=== PATIENT | female | born 1970 | race African-American/Black ===

== ENCOUNTER 2017-12-01 22:48 | Inpatient (IN) ==
[2017-12-01] MEDS ORDERED: ONDANSETRON 4 MG/2 ML VIAL IV STA (23:03)
[2017-12-01] MEDS ORDERED: MORPHINE 4 MG/1 ML VIAL IV STA (23:03)
[2017-12-02] MEDS ORDERED: LEVOFLOXACIN INJ 100 ML IV ONE (00:11)
[2017-12-02 00:26] LABS: INR 1.1; PT Patient Result 11.3 SECS; Partial Thromboplastin Time 25.4 SECS (0-40)
[2017-12-02] MEDS ORDERED: GENTAMICIN INJ 160 MG in SODIUM CHLORIDE 0.9% 100 ML IV ONE (00:30)
[2017-12-02] MEDS ORDERED: LEVOFLOXACIN INJ 500 MG in PREMIX 1 EACH IV ONE (00:30)
[2017-12-02 00:47] LABS: Albumin 2.5 G/DL (3.4-5.0); Bilirubin,Total 0.5 MG/DL (0.2-1.0); Calcium 7.9 MG/DL (8.5-10.1); Osmolality,Calculated 289.8 MOS/KG (273-304); Potassium 3.2 MMOL/L (3.5-5.1); Total Protein 6.4 G/DL (6.4-8.3)
[2017-12-02 00:54] LABS: Basophils % 0.2 % (0.0-0.8); Hemoglobin 12.2 GM/DL (12.0-16.0); Immature Granulocytes % 0.5 %; Immature Granulocytes Absolute 0.06 #; Lymphocytes # 0.3 10*3/uL (1.4-4.0); Lymphocytes % 2.3 % (21.3-54.2); Mean Corpuscular HGB Conc 33.9 GM/DL (32-36); Mean Corpuscular Hemoglobin 27 PG (27-34); Mean Corpuscular Volume 80.5 FL (87-102); Mean Platelet Volume 12.5 FL (9.6-12.0); Monocytes # 0.1 10*3/uL (0.11-0.8); Monocytes % 0.9 % (1.7-12.7); Neutrophils # 11.2 10*3/uL (1.4-7.4); Neutrophils % 96.1 % (38.7-73.9); Platelet Count 155 T/CUMM (130-400); Red Blood Count 4.47 MC/CUMM (3.8-5.5); Red Cell Distribution Width 14.7 % (9.3-17.3); White Blood Count 11.7 T/CUMM (4-12)
[2017-12-02] MEDS ORDERED: ONDANSETRON 4 MG/2 ML VIAL IV PRN (01:00)
[2017-12-02] MEDS ORDERED: PROMETHAZINE 25 MG/1 ML VIAL IM PRN (01:00)
[2017-12-02] MEDS ORDERED: DEXTROSE 50% 25 GM/50 ML VIAL IV PRN ×2 (01:07→13:45)
[2017-12-02] MEDS ORDERED: GLUCAGON 1 MG VIAL IM PRN ×2 (01:07→13:45)
[2017-12-02] MEDS ORDERED: DOCUSATE SODIUM 100 MG CAPSULE PO PRN (01:08)
[2017-12-02] MEDS ORDERED: diphenhydrAMINE 50 MG/1 ML VIAL IV PRN (01:08)
[2017-12-02] MEDS ORDERED: POTASSIUM CHLORIDE 20 MEQ TABLET PO ONE (01:10)
[2017-12-02 01:20] LABS: Band Neutrophils 13 % (0-10); Lymphocytes 10 % (20-55); Platelet Estimate Normal; Segmented Neutrophils 75 % (50-85); Total Cells Counted 100
[2017-12-02] MEDS ORDERED: SEVOFLURANE 1 UNIT/15 MINUTE INH ONE (01:46)
[2017-12-02] MEDS ORDERED: SUCCINYLCHOLINE 200 MG/10 ML VIAL ONE (01:46)
[2017-12-02] MEDS ORDERED: fentaNYL 100 MCG/2 ML VIAL ONE (01:46)
[2017-12-02] MEDS ORDERED: ROCURONIUM 100 MG/10 ML VIAL IV ONE (01:46)
[2017-12-02] MEDS ORDERED: METOCLOPRAMIDE 10 MG/2 ML VIAL ONE (01:46)
[2017-12-02] MEDS ORDERED: GLYCOPYRROLATE 0.4 MG/2 ML VIAL ONE (01:46)
[2017-12-02] MEDS ORDERED: PHENYLEPHRINE 1 MG/10 ML SYRINGE IV ONE (01:46)
[2017-12-02] MEDS ORDERED: NEOSTIGMINE 10 MG/10 ML VIAL ONE (01:46)
[2017-12-02] MEDS ORDERED: MIDAZOLAM 2 MG/2 ML VIAL ONE (01:46)
[2017-12-02 01:58] LABS: ABG Base Excess -6.2 MMOL/L (-2.5-2.5); ABG HCO3 19.4 MMOL/L (20-26); ABG Oxygen Saturation 97.7 % (95-100); ABG PCO2 46.9 MM HG (35-48); ABG PH 7.261 (7.35-7.45)
[2017-12-02 02:00] LABS: Apearance,Urine CLOUDY (Clear); Bacteria,Urine Moderate /HPF (Few); Bilirubin,Urine Negative (Negative); Blood, Urine Large mg/dL (Negative); Glucose,Urine (UA) Negative (Negative); Ketones,Urine Negative (Negative); Mucus,Urine Occasional /LPF (Occasional); Nitrite,Urine Negative (Negative); Protein,Urine 30 MG/DL; RBC,Urine 112 /HPF (0-4); Urine Color Yellow (Yellow); Urine Specific Gravity 1.006 (1.001-1.035); Urine Urobilinogen < 2.0 EU/DL (0.2-1.0); WBC,Urine 841 /HPF (0-6)
[2017-12-02 02:28] LABS: Calcium 7.9 MG/DL (8.5-10.1); Osmolality,Calculated 292.8 MOS/KG (273-304); Potassium 3.3 MMOL/L (3.5-5.1)
[2017-12-02] MEDS: SODIUM CHLORIDE 0.9% 1,000 ML IV SCH ×3 (02:38→18:30)
[2017-12-02] MEDS: PROPOFOL 1,000 MG/100 ML BOTTLE IV SCH ×2 (02:39→05:38)
[2017-12-02] MEDS ORDERED: ALBUTEROL/IPRATROPIUM 3 ML NEB RESP TX PRN (03:00)
[2017-12-02] MEDS ORDERED: PHENYLEPHRINE DRIP 40 MG/250 ML PREMIX IV PRN (03:11)
[2017-12-02 04:12] LABS: Allen Test Positive; Pt O2 Delivery Device Ventilator
[2017-12-02 04:13] LABS: ABG HCO3 20.3 MMOL/L (20-26); ABG Oxygen Saturation 96.1 % (95-100); ABG PCO2 40.7 MM HG (35-48); ABG PH 7.318 (7.35-7.45); ABG PO2 80.1 MM HG (80-95); ABG TCO2 18.8 MMOL/L (23-27)
[2017-12-02] MEDS ORDERED: INSULIN REGULAR 100 UNIT/ML SUBCUT SCH ×2 (07:30→12:00)
[2017-12-02] MEDS: ALBUTEROL/IPRATROPIUM 3 ML NEB RESP TX SCH ×3 (07:41→19:39)
[2017-12-02] MEDS: TAMSULOSIN 0.4 MG CAPSULE PO SCH (09:00)
[2017-12-02] MEDS ORDERED: FAMOTIDINE 20 MG TABLET PO SCH (09:00)
[2017-12-02] MEDS ORDERED: FAMOTIDINE 8 MG/ML 50 ML/BOTTLE NG SCH (09:00)
[2017-12-02] MEDS: cefTRIAXone 1,000 MG in SYRINGE 1 EACH IV SCH (09:10)
[2017-12-02 09:27] LABS: Calcium 7.7 MG/DL (8.5-10.1); Osmolality,Calculated 283.5 MOS/KG (273-304); Potassium 5.5 MMOL/L (3.5-5.1)
[2017-12-02] MEDS: MORPHINE 10 MG/1 ML VIAL IV PRN ×2 (16:15→23:08)
[2017-12-02] MEDS: INSULIN REGULAR 100 UNIT/ML SUBCUT SCH ×2 (16:30→22:20)
[2017-12-03] MEDS: ALBUTEROL/IPRATROPIUM 3 ML NEB RESP TX SCH ×3 (00:37→19:03)
[2017-12-03] MEDS: SODIUM CHLORIDE 0.9% 1,000 ML IV SCH ×2 (03:18→15:45)
[2017-12-03 05:25] LABS: Basophils % 0.2 % (0.0-0.8); Eosinophils # 0.2 10*3/uL (0.0-0.87); Eosinophils % 0.8 % (0.00-10.9); Hematocrit 34.6 VOL% (35.7-47.0); Hemoglobin 11.8 GM/DL (12.0-16.0); Immature Granulocytes Absolute 0.17 #; Lymphocytes # 1.7 10*3/uL (1.4-4.0); Lymphocytes % 9.7 % (21.3-54.2); Mean Corpuscular HGB Conc 34.1 GM/DL (32-36); Mean Corpuscular Hemoglobin 27 PG (27-34); Mean Corpuscular Volume 79.5 FL (87-102); Mean Platelet Volume 12.6 FL (9.6-12.0); Monocytes % 5.8 % (1.7-12.7); Neutrophils # 14.7 10*3/uL (1.4-7.4); Neutrophils % 82.5 % (38.7-73.9); Platelet Count 144 T/CUMM (130-400); Red Blood Count 4.35 MC/CUMM (3.8-5.5); Red Cell Distribution Width 15.2 % (9.3-17.3); White Blood Count 17.8 T/CUMM (4-12)
[2017-12-03 05:53] LABS: Calcium 8.3 MG/DL (8.5-10.1); Osmolality,Calculated 291.7 MOS/KG (273-304); Potassium 4.1 MMOL/L (3.5-5.1)
[2017-12-03 06:02] LABS: Hypochromasia 1+; Microcytosis 1+; Platelet Estimate Adequate; Tear Drop Cells Slight
[2017-12-03] MEDS: ACETAMINOPHEN 325 MG TABLET PO PRN ×2 (06:28→22:36)
[2017-12-03] MEDS: INSULIN REGULAR 100 UNIT/ML SUBCUT SCH ×4 (07:48→22:41)
[2017-12-03] MEDS: FAMOTIDINE 20 MG TABLET PO SCH (08:50)
[2017-12-03] MEDS: VALSARTAN 160 MG TABLET PO SCH (08:50)
[2017-12-03] MEDS: cefTRIAXone 1,000 MG in SYRINGE 1 EACH IV SCH (08:50)
[2017-12-03] MEDS: TAMSULOSIN 0.4 MG CAPSULE PO SCH (08:50)
[2017-12-03] MEDS ORDERED: NIFEdipine 10 MG CAPSULE PO PRN (13:05)
[2017-12-03] MEDS: amLODIPine 10 MG TABLET PO SCH (13:20)
[2017-12-03] MEDS: MORPHINE 10 MG/1 ML VIAL IV PRN (15:00)
[2017-12-04] MEDS: ALBUTEROL/IPRATROPIUM 3 ML NEB RESP TX SCH ×4 (01:05→19:25)
[2017-12-04] MEDS: INSULIN REGULAR 100 UNIT/ML SUBCUT SCH ×4 (07:55→21:19)
[2017-12-04] MEDS: TAMSULOSIN 0.4 MG CAPSULE PO SCH (09:07)
[2017-12-04] MEDS: amLODIPine 10 MG TABLET PO SCH (09:07)
[2017-12-04] MEDS: VALSARTAN 160 MG TABLET PO SCH (09:07)
[2017-12-04] MEDS: cefTRIAXone 1,000 MG in SYRINGE 1 EACH IV SCH (09:07)
[2017-12-04] MEDS: FAMOTIDINE 20 MG TABLET PO SCH (09:07)
[2017-12-04] MEDS: SODIUM CHLORIDE 0.9% 1,000 ML IV SCH (09:09)
[2017-12-04] MEDS: MORPHINE 10 MG/1 ML VIAL IV PRN (14:21)
[2017-12-04] MEDS: ACETAMINOPHEN 325 MG TABLET PO PRN (23:26)
[2017-12-05] MEDS: ALBUTEROL/IPRATROPIUM 3 ML NEB RESP TX SCH ×3 (00:40→07:34)
[2017-12-05] MEDS: SODIUM CHLORIDE 0.9% 1,000 ML IV SCH (06:18)
[2017-12-05 06:51] LABS: Basophils # 0.1 10*3/uL (0.0-0.2); Basophils % 0.6 % (0.0-0.8); Eosinophils # 0.3 10*3/uL (0.0-0.87); Eosinophils % 3.4 % (0.00-10.9); Hematocrit 36.1 VOL% (35.7-47.0); Hemoglobin 12.5 GM/DL (12.0-16.0); Immature Granulocytes % 0.9 %; Immature Granulocytes Absolute 0.09 #; Lymphocytes # 2.6 10*3/uL (1.4-4.0); Lymphocytes % 27.3 % (21.3-54.2); Mean Corpuscular HGB Conc 34.6 GM/DL (32-36); Mean Corpuscular Hemoglobin 27 PG (27-34); Mean Corpuscular Volume 77.3 FL (87-102); Mean Platelet Volume 12.5 FL (9.6-12.0); Monocytes # 0.9 10*3/uL (0.11-0.8); Monocytes % 9.9 % (1.7-12.7); Neutrophils # 5.5 10*3/uL (1.4-7.4); Neutrophils % 57.9 % (38.7-73.9); Platelet Count 174 T/CUMM (130-400); Red Blood Count 4.67 MC/CUMM (3.8-5.5); Red Cell Distribution Width 14.6 % (9.3-17.3); White Blood Count 9.5 T/CUMM (4-12)
[2017-12-05 07:10] LABS: Osmolality,Calculated 281.1 MOS/KG (273-304); Potassium 3.5 MMOL/L (3.5-5.1)
[2017-12-05] MEDS: INSULIN REGULAR 100 UNIT/ML SUBCUT SCH ×3 (08:05→16:57)
[2017-12-05] MEDS ORDERED: POTASSIUM CHLORIDE 20 MEQ TABLET PO ONE (08:12)
[2017-12-05] MEDS: cefTRIAXone 1,000 MG in SYRINGE 1 EACH IV SCH (09:02)
[2017-12-05] MEDS: amLODIPine 10 MG TABLET PO SCH (09:03)
[2017-12-05] MEDS: FAMOTIDINE 20 MG TABLET PO SCH (09:03)
[2017-12-05] MEDS: TAMSULOSIN 0.4 MG CAPSULE PO SCH (09:03)
[2017-12-05] MEDS: VALSARTAN 160 MG TABLET PO SCH (09:03)
[2017-12-05] MEDS ORDERED: MAGNESIUM OXIDE 400 MG TABLET PO ONE (09:04)
[2017-12-05] MEDS ORDERED: cephALEXin 500 MG CAPSULE PO SCH (11:30)
[2017-12-05] MEDS ORDERED: NITROFURANTOIN MACRO/MONO 100 MG CAPSULE PO SCH (11:30)
[2017-12-05 18:20] VITALS: BP 153/93
== END 2017-12-05 18:19 | disposition home or self-care (01) | DRG 689 ==
LOC: EDUNIT# → EDBD → N.ED 22:48 → N.ICU 12-02 00:26 → N.5E 12-03 20:24
PROVIDERS: ADMIT Surgery; ATTEND Surgery

== ENCOUNTER 2017-12-18 06:16 | Observation (INO) ==
[~2017-12-18 06:16] MED LIST: LACTATED RINGERS 1,000 ML IV SCH
[2017-12-18] MEDS ORDERED: cefTRIAXone 1,000 MG in SYRINGE 1 EACH IV ONE (06:30)
[2017-12-18] MEDS ORDERED: ONDANSETRON 4 MG/2 ML VIAL IV PRN (07:51)
[2017-12-18] MEDS ORDERED: DEXTROSE 50% 25 GM/50 ML VIAL IV PRN (07:51)
[2017-12-18] MEDS ORDERED: GLUCAGON 1 MG VIAL IM PRN (07:51)
[2017-12-18] MEDS ORDERED: MORPHINE 10 MG/1 ML VIAL IV PRN (07:51)
[2017-12-18] MEDS ORDERED: PROMETHAZINE 25 MG/1 ML VIAL IM PRN (07:51)
[2017-12-18] MEDS ORDERED: diphenhydrAMINE 50 MG/1 ML VIAL IV PRN (07:54)
[2017-12-18] MEDS ORDERED: GENTAMICIN INJ 160 MG in SODIUM CHLORIDE 0.9% 100 ML IV ONE (07:55)
[2017-12-18] MEDS ORDERED: PROPOFOL 200 MG/20 ML VIAL IV ONE (08:18)
[2017-12-18] MEDS ORDERED: MIDAZOLAM 2 MG/2 ML VIAL ONE (08:19)
[2017-12-18] MEDS ORDERED: SEVOFLURANE 1 UNIT/15 MINUTE INH ONE (08:19)
[2017-12-18] MEDS ORDERED: GLYCOPYRROLATE 0.4 MG/2 ML VIAL ONE (08:20)
[2017-12-18] MEDS ORDERED: fentaNYL 100 MCG/2 ML VIAL ONE (08:20)
[2017-12-18] MEDS ORDERED: NEOSTIGMINE 10 MG/10 ML VIAL ONE (08:21)
[2017-12-18] MEDS ORDERED: SUCCINYLCHOLINE 200 MG/10 ML VIAL ONE (08:21)
[2017-12-18] MEDS ORDERED: ROCURONIUM 100 MG/10 ML VIAL IV ONE (08:21)
[2017-12-18] MEDS ORDERED: TAMSULOSIN 0.4 MG CAPSULE PO SCH (09:00)
[2017-12-18 09:25] LABS: Basophils # 0.1 10*3/uL (0.0-0.2); Basophils % 0.7 % (0.0-0.8); Eosinophils # 0.1 10*3/uL (0.0-0.87); Eosinophils % 1.5 % (0.00-10.9); Hematocrit 36.3 VOL% (35.7-47.0); Hemoglobin 12.3 GM/DL (12.0-16.0); Immature Granulocytes % 0.6 %; Immature Granulocytes Absolute 0.04 #; Lymphocytes % 29.5 % (21.3-54.2); Mean Corpuscular HGB Conc 33.9 GM/DL (32-36); Mean Corpuscular Hemoglobin 27 PG (27-34); Mean Corpuscular Volume 78.7 FL (87-102); Mean Platelet Volume 12.5 FL (9.6-12.0); Monocytes # 0.4 10*3/uL (0.11-0.8); Monocytes % 6.4 % (1.7-12.7); Neutrophils # 4.2 10*3/uL (1.4-7.4); Neutrophils % 61.3 % (38.7-73.9); Platelet Count 195 T/CUMM (130-400); Red Blood Count 4.61 MC/CUMM (3.8-5.5); Red Cell Distribution Width 15.4 % (9.3-17.3); White Blood Count 6.8 T/CUMM (4-12)
[2017-12-18] MEDS: TAMSULOSIN 0.4 MG CAPSULE PO SCH (09:28)
[2017-12-18] MEDS: cefTRIAXone 1,000 MG in SYRINGE 1 EACH IV SCH (09:28)
[2017-12-18] MEDS: ACETAMINOPHEN 325 MG TABLET PO SCH ×3 (09:28→21:27)
[2017-12-18] MEDS: amLODIPine 10 MG TABLET PO SCH (09:29)
[2017-12-18 09:48] LABS: Calcium 8.6 MG/DL (8.5-10.1); Potassium 3.7 MMOL/L (3.5-5.1)
[2017-12-18] MEDS: INSULIN REGULAR 100 UNIT/ML SUBCUT SCH ×3 (11:48→21:27)
[2017-12-18] MEDS: ALBUTEROL/IPRATROPIUM 3 ML NEB RESP TX SCH ×2 (14:46→19:48)
[2017-12-19] MEDS: ALBUTEROL/IPRATROPIUM 3 ML NEB RESP TX SCH ×2 (00:04→07:53)
[2017-12-19] MEDS: ACETAMINOPHEN 325 MG TABLET PO SCH ×2 (03:30→08:55)
[2017-12-19 05:31] LABS: Basophils # 0.1 10*3/uL (0.0-0.2); Basophils % 0.9 % (0.0-0.8); Eosinophils # 0.2 10*3/uL (0.0-0.87); Eosinophils % 3.3 % (0.00-10.9); Hematocrit 36.5 VOL% (35.7-47.0); Hemoglobin 12.3 GM/DL (12.0-16.0); Immature Granulocytes % 0.3 %; Immature Granulocytes Absolute 0.02 #; Lymphocytes # 2.4 10*3/uL (1.4-4.0); Lymphocytes % 35.5 % (21.3-54.2); Mean Corpuscular HGB Conc 33.7 GM/DL (32-36); Mean Corpuscular Hemoglobin 27 PG (27-34); Mean Corpuscular Volume 79.2 FL (87-102); Mean Platelet Volume 12.2 FL (9.6-12.0); Monocytes # 0.5 10*3/uL (0.11-0.8); Monocytes % 7.9 % (1.7-12.7); Neutrophils # 3.5 10*3/uL (1.4-7.4); Neutrophils % 52.1 % (38.7-73.9); Platelet Count 212 T/CUMM (130-400); Red Blood Count 4.61 MC/CUMM (3.8-5.5); Red Cell Distribution Width 15.2 % (9.3-17.3); White Blood Count 6.7 T/CUMM (4-12)
[2017-12-19 05:47] LABS: Calcium 8.4 MG/DL (8.5-10.1); Potassium 3.8 MMOL/L (3.5-5.1)
[2017-12-19 07:55] VITALS: BP 116/67
[2017-12-19] MEDS: INSULIN REGULAR 100 UNIT/ML SUBCUT SCH ×2 (08:15→11:32)
[2017-12-19] MEDS: cefTRIAXone 1,000 MG in SYRINGE 1 EACH IV SCH (08:54)
[2017-12-19] MEDS: amLODIPine 10 MG TABLET PO SCH (08:55)
[2017-12-19] MEDS: TAMSULOSIN 0.4 MG CAPSULE PO SCH (08:55)
[2017-12-21 09:51] LABS: Stone Source Passed Stone
== END 2017-12-19 12:12 | disposition home or self-care (01) ==
LOC: N.OR 06:16 → N.3E 06:16 → N.SDSINP 06:17 → N.3E 08:58
PROVIDERS: ADMIT Surgery; ATTEND Surgery